=== PATIENT | female | born 1985 | race Caucasian/White ===

== ENCOUNTER 2018-12-21 07:32 | Day surgery (SDC) | payer OTHER ==
[2018-12-18 08:12] VITALS: BMI 30.8
[2018-12-21] MEDS ORDERED: LACTATED RINGERS SOLUTION 1,000 ML IV SCH (09:00)
--- NOTE | 2018-12-21 09:29 | HP ---
History & Physical Update - History History: No Change ( at EGA 15wk w/incompetent cervix, admitted fro cervical cerclage) - Physical Physical: No Change - Assessment Assessment: No Change - Plan Plan: No Change (Cervical cerclage)
[2018-12-21] MEDS ORDERED: PHENYLEPHRINE HCL 10 MG/1 ML SINGLE DOSE VIAL ONE (09:43)
[2018-12-21] MEDS ORDERED: ceFAZolin SODIUM 1 GM VIAL IVPB ONE (09:55)
[2018-12-21] MEDS ORDERED: ceFAZolin SODIUM 1 GM VIAL ONE (10:03)
--- NOTE | 2018-12-21 10:32 | OP ---
Operative Note - Note: Operative Date: 12/21/18 Pre-Operative Diagnosis: at 14wks with incompetent cervix Operation: Talley cervical cerclage Findings: Closed cervix, normal anatomy. Post-Operative Diagnosis: Other (Cerclage suture knot is at 12:00) Surgeon: Franklyn Israel Anesthesiologist/DISC PAD GRINDER: Lis Nickerson Anesthesia: Spinal Estimated Blood Loss (mls): 1 Blood Volume Replaced (mls): 0 Fluid Volume Replaced (mls): 1,000 Operative Report Dictated: Yes
--- NOTE | 2018-12-21 11:31 | OP ---
DATE OF OPERATION: 12/21/2018 PREOPERATIVE DIAGNOSIS: at estimated gestational age of 14 weeks with incompetent cervix. POSTOPERATIVE DIAGNOSIS: at estimated gestational age of 14 weeks with incompetent cervix. PROCEDURE: Talley cervical cerclage. SURGEON: Raquel Chen MD ANESTHESIOLOGIST: Lis Nickerson MD ANESTHESIA: Spinal. COMPLICATIONS: None. ESTIMATED BLOOD LOSS: 1 mL. IV FLUIDS: 1000 mL. FINDINGS: Examination under anesthesia revealed a closed cervix. External cervical os measured approximately 2 cm. Preoperative ultrasound confirmed a live intrauterine in variable presentation with anterior placenta. Postoperative ultrasound revealed a live intrauterine in variable presentation with anterior placement. DESCRIPTION OF PROCEDURE: The patient was met preoperatively. Risks, benefits, and alternatives of surgery were discussed in details. All questions were answered. The patient was then brought to the OR with the IV running. She was placed on the surgical table in a sitting position. The spinal anesthesia was achieved without difficulty. The patient was then placed on the surgical table in a dorsal lithotomy position using adjustment Salvatore stirrups. The patient was examined under anesthesia with the findings as described above. A preoperative ultrasound was performed. The patient was then prepped and draped in the usual sterile fashion. A time-out procedure was conducted as per standard protocol. The surgeon then proceeded with the operation. The cervical os was grasped with atraumatic forceps. A 5-mm Mersilene suture was then placed circumferentially around the cervix in a pursestring fashion. Care was taken to identify the bladder reflection and posterior fornix reflection carefully. The suture was placed successfully and tied at 12 o'clock. Good hemostasis was noted. The cervix appeared long and closed at the end of the procedure. The instruments were removed from the patient. Sponge, lap, and needle counts were correct. A postoperative ultrasound was performed. The patient was then returned to supine position. She was transferred to recovery room awake and in stable condition. RAQUEL CHEN M.D. [id number]
[2018-12-21 13:23] VITALS: BP 99/56; PULSE 69; TEMP 97.9
== END 2018-12-21 15:40 | disposition home or self-care (01) ==
LOC: JASU-SURG 07:32
PROVIDERS: ATTEND Obstetrics & Gynecology
PROC: 0UVC7ZZ Restriction of Cervix, Via Natural or Artificial Opening (ICD-10-PCS; principal; 2018-12-21 09:00)
DX: O34.32 Maternal care for cervical incompetence, second trimester (principal)
CPT/HCPCS: 76815; 76998-TC; 86850; 86900; 86901; 94760

== ENCOUNTER 2019-06-14 08:08 | Inpatient (IN) | payer OTHER ==
[2019-06-14 08:55] VITALS: BMI 36.6
[2019-06-14] MEDS ORDERED: CITRIC ACID/SODIUM CITRATE 30 ML UNIT-DOSE CUP PO ONE (09:15)
[2019-06-14] MEDS ORDERED: ELECTROLYTE-148 SOLN 1,000 ML IV SCH ×3 (09:15→10:15)
--- NOTE | 2019-06-14 10:02 | HP ---
Past Medical History - Primary Care Physician PCP:: Franklyn Israel - Admission Chief Complaint: 34yo P2 with at EGA 39w0d admitted for repeat C/S. History of Present Illness: Prior C/S x 2 Hx cervical incompetence and s/p cervical cerclage removed. 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 Hx of infertility History Source: Patient, Medical Record Limitations to Obtaining History: No Limitations - Past Medical History HOT REPAIRMAN: No: Alzheimer's, CVA, Dementia, Migraine, Multiple Sclerosis, Peripheral Neuropathy, Parkinson's, Seizure, Syncope, TIA, Vertigo, Other Cardiovascular: No: AFIB, Aneurysm, Aortic Insufficiency, Aortic Stenosis, CAD, CHF, Deep Vein Thrombosis, HTN, Hyperlipdemia, IL, Mitral Insufficiency, Mitral Stenosis, Murmur, Pulmonary Hypertension, Other Pulmonary: No: Asthma, Bronchitis, Cancer, COPD, O2 Dependent, Pneumonia, Previously Intubated, Pulmonary Embolus, Pulmonary Fibrosis, Sleep Apnea, Other Gastrointestinal: No: Ascites, Cancer, Constipation, Crohn's Disease, Diverticulitis, Diverticulosis, Esophageal Varices, Gastritis, GERD, GI Bleed, Hemorrhoids, Hiatal Hernia, Inflamatory Bowel Disease, Irritable Bowel Disease, Pancreatitis, Peptic Ulcer Disease, Ulcerative Colitis, Other Hepatobiliary: No: Cirrhosis, Cholelithiasis, Cholecystitis, Choledocholithiasis , Hepatitis A, Hepatitis B, Hepatitis C, Other Renal/: No: Renal Failure, Renal Inusuff, BPH, Cancer, Hematuria, Hemodialysis , Neurogenic Bladder, Renal Calculi, UTI, Other Reproductive: Yes: Polycystic Ovary Syndrome ...: 4 ...Para: 2 ...Term: 1 ...: 1 ...Spon : 1 ...Induced : 0 ...Multiple Gestation: 0 ...LMP: 09/15/18 ... Weeks Gestation by Dates: 39 ...EDC by Dates: 06/22/19 ...EDC by Sono: 06/21/19 Heme/Onc: No: Anemia, B12 Deficiency, Bleeding Disorder, Cancer, Current Chemotherapy, Current Radiation Therapy, Hemochromatosis, Hypercoaguable State, Myeloproliferative Synd, Sickle Cell Disease, Sickle Cell Trait, Thrombocytopenia, Other Infectious Disease: No: AIDS, C-Diff, Herpes Zoster, HIV, MRSA, STD's, Tuberculosis, VREF, Other Psych: No: Addictions, Anxiety, Bipolar, Depression, Panic, Psychosis, Schizophrenia, Other Musculoskeletal: No: Bursitis, Chronic low back pain, Hemiparesis, Hemiplegia, Osteoarthritis, Paraplegia, Other Rheumatology: No: Fibromyalgia, Gout, Lupus, Rheumatoid Arthritis, Sarcoidosis, Vasculitis, Other ENT: No: Allergic Rhinitis, Sinusitis, Other Endocrine: No: Andrei's Disease, Hermelinda's Disease, Diabetes Insipidus, Diabetes Mellitus, Hyperparathyroidism, Hyperthyroidism, Hypothyroidism, Osteopenia, SIADH, Other Dermatology: No: Basal Cell, Cellulitis, Eczema, Melanoma, Psoriasis, Squamous Cell, Other - Past Surgical History Past Surgical History: Yes: Bariatric Surgery, Cholecystectomy, (x 2) , Tonsillectomy Hx Myomectomy: No Hx Transabdominal Cerclage: No Additional Surgical History: Cleft lip and palate repair - Smoking History Smoking history: Never smoked Have you smoked in the past 12 months: No - Alcohol/Substance Use Hx Alcohol Use: No History of Substance Use: reports: None - Social History Usual Living Arrangement: Yes: With Spouse, With Child Do you think of yourself as: Straight/Heterosexual ADL: Independent History of Recent Travel: No Home Medications - Allergies Allergies/Adverse Reactions: Allergies Allergy/AdvReac Type Severity Reaction Status Date / Time No Known Allergies Allergy Verified 06/14/19 08:27 - Home Medications Home Medications: Ambulatory Orders Ferrous Sulfate [Iron] 325 mg PO DAILY 06/04/19 Pnv 29-1 Tablet 1 tab PO DAILY 06/04/19 Family Medical History Family History: Unremarkable Family Hx Diabetes: Father Review of Systems - Review of Systems Constitutional: reports: No Symptoms Eyes: reports: No Symptoms HENT: reports: No Symptoms Neck: reports: No Symptoms Cardiovascular: reports: No Symptoms Respiratory: reports: No Symptoms Gastrointestinal: reports: No Symptoms Genitourinary: reports: No Symptoms Breasts: reports: No Symptoms Reported Musculoskeletal: reports: No Symptoms Integumentary: reports: No Symptoms Neurological: reports: No Symptoms Endocrine: reports: No Symptoms Hematology/Lymphatic: reports: No Symptoms Psychiatric: reports: No Symptoms Pain Intensity: 0 Physical Exam - Maternity Vital Signs: Vital Signs Temperature 98.2 F 06/14/19 08:30 Pulse Rate 77 06/14/19 08:30 Respiratory Rate 18 06/14/19 08:30 Blood Pressure 111/58 L 06/14/19 08:30 O2 Sat by Pulse Oximetry (%) Constitutional: Yes: Well Nourished, No Distress, Calm Eyes: Yes: WNL, Conjunctiva Clear HENT: Yes: WNL, Atraumatic, Normocephalic Neck: Yes: WNL, Supple, Trachea Midline Cardiovascular: Yes: WNL, Regular Rate and Rhythm Lungs: Clear to auscultation, Normal air movement - Abdominal Exam/OB Fundal Height: 40 Number of Fetuses: Single Presentation: Vertex Contractions: Yes Regularity: Irritability Intensity: Unaware Monitor Mode: External Heart Rate (range): 135 Heart Rate Location: Midline Category: I Accelerations: Non-Uniform Decelerations: None - Vaginal Exam/OB Vaginal Bleediing: No Speculum Exam: No Amniotic Membrane Status: Intact Presentation: Vertex/Position - Physical Exam Musculoskeletal: Yes: WNL Extremities: Yes: WNL Edema: Yes Edema: LLE: Trace, RLE: Trace Integumentary: Yes: WNL Deep Tendon Reflex Grade: Normal +2 ...Motor Strength: WNL Psychiatric: Yes: WNL, Alert, Oriented Hemorrhage Risk Assessment - Risk Factors Medium Risk Factors: Yes: Prior , uterine surgery,or multiple laparotomies High Risk Factors: Yes: None Risk Score: 1 Risk Level: Medium Risk Assessment/Plan 34yo P2 with at EGA 39w0d admitted for repeat C/S. We discussed the risks and benefits of C/S at length, including but not limited to scarring, pain , bleeding, infection, injury to underlying organs and structures, need for additional surgery to repair/treat any problems or complications, complications/injuries, etc. The pt verbalized her understanding and requested to proceed with surgery. The pt is aware that all surgeries have risks and no guarantees can be provided.
[2019-06-14] MEDS ORDERED: OXYTOCIN 20 UNITS in 0.9% NS 40 UNIT/2,000 ML INFUS.BAG IV ONE (10:12)
[2019-06-14] MEDS ORDERED: morphine SULFATE/PF 0.5 MG/ML (2cc Syringe - QUVA) ONE (10:25)
[2019-06-14] MEDS ORDERED: ceFAZolin SODIUM 1 GM VIAL ONE (10:32)
[2019-06-14] MEDS ORDERED: ePHEDrine SULFATE 50 MG/1 ML AMPULE ONE (10:34)
[2019-06-14] MEDS ORDERED: PHENYLEPHRINE HCL 10 MG/1 ML SINGLE DOSE VIAL ONE (10:39)
[2019-06-14] MEDS ORDERED: KETOROLAC TROMETHAMINE 30 MG/1 ML VIAL ONE (11:21)
[2019-06-14 11:22] LABS: COCAINE, UR NEGATIVE ng/ml (CUTOFF=300); METHADONE, UR NEGATIVE ng/ml (CUTOFF=300); OPIATES, URI NEGATIVE ng/ml (CUTOFF=300); PHENCYCLIDINE,URINE NEGATIVE ng/ml (CUTOFF=25); URINE AMPHETAMINES NEGATIVE ng/ml (CUTOFF=500); URINE BARBITURATES NEGATIVE ng/ml (CUTOFF=200); URINE BENZODIAZEPINES NEGATIVE ng/ml (CUTOFF=200)
--- NOTE | 2019-06-14 11:28 | PN ---
Progress Note (short form) - Note Progress Note: Attended Rpt C/S for this 34yrs old mother with Maternal PNL- nl, Mom with H/O Cleft lip/ Palate - repaired Infant delivered - clear fluid, cried soon after suctioned/ dried cord 3V 9/9 PE: alert/ active, pink well perfused, Not in distress PE exam nl for age RNBC Watch for resp distress Encourage BF/ Bonding.
[2019-06-14] MEDS ORDERED: METHYLERGONOVINE MALEATE 0.2 MG/1 ML AMP IM PRN (11:57)
[2019-06-14] MEDS ORDERED: IBUPROFEN 800 MG/8 ML IJ IVPB PRN (11:57)
[2019-06-14] MEDS ORDERED: oxyCODONE HCL 5 MG TABLET PO PRN ×2 (11:57)
[2019-06-14] MEDS ORDERED: BENZOCAINE 20% 57 GM BOTTLE TP PRN (11:57)
[2019-06-14] MEDS ORDERED: WITCH HAZEL 50% (TUCKS) 40 PAD/JAR PAD TP PRN (11:57)
[2019-06-14] MEDS ORDERED: SENNOSIDES/DOCUSATE COMBO (SENNA PLUS) TABLET (UD) PO PRN (11:57)
[2019-06-14] MEDS ORDERED: BENZOCAINE 28 GM HEMORRHOIDAL OINTMENT TP PRN (11:57)
[2019-06-14] MEDS ORDERED: OXYTOCIN 20 UNITS in 0.9% NS 20 UNIT/1,000 ML INFUS.BAG IV SCH (12:00)
--- NOTE | 2019-06-14 12:20 | OP ---
Operative Note - Note: Operative Date: 06/14/19 Pre-Operative Diagnosis: at EGA 39wk. Prior C/S. Sterilization Operation: Repeat LT C/S and BTL Findings: Multiple large vascular sinuses and varicosities in lower uterine segment and bladder. Live baby boy in Vtx presentation, no meconium in amniotic fluid, normal uterus/tubes/ovaries. 9-9, Wt 7lb 14oz Post-Operative Diagnosis: Same as Pre-op Surgeon: Franklyn Israel Senior Outside Sales Representative: Faby Ann Anesthesiologist/PREDATORY ANIMAL HUNTER: Alex Bland Anesthesia: Spinal Specimens Removed: Placenta, sigments of bilateral Fallopian tubes. Estimated Blood Loss (mls): 700 Drains & Tubes with Location: Mahoney cath Drains, Volume Out (mls): 100 Blood Volume Replaced (mls): 0 Fluid Volume Replaced (mls): 1,700 Operative Report Dictated: Yes
--- NOTE | 2019-06-14 13:42 | OP ---
DATE OF OPERATION: 06/14/2019 PREOPERATIVE DIAGNOSIS: at estimated gestational age of 39 weeks. Previous section x2. Sterilization with bilateral tubal ligation. POSTOPERATIVE DIAGNOSIS: at estimated gestational age of 39 weeks. Previous section x2. Sterilization with bilateral tubal ligation. PROCEDURE: Repeat low transverse section via Pfannenstiel skin incision, bilateral tubal ligation via modified Marko method. SURGEON: Franklyn Israel M.D. WINE CELLAR WORKER: Faby Ann M.D. ANESTHESIA: Spinal. ANESTHESIOLOGIST: Alex Bland M.D. PATHOLOGY: Placenta and segments of bilateral fallopian tubes. COMPLICATIONS: None. ESTIMATED BLOOD LOSS: 700 mL URINE OUTPUT: 100 mL clear urine at the end of the procedure. INTRAVENOUS FLUIDS: 1700 mL. FINDINGS: Multiple large vascular sinuses and varicosities were noted in the lower uterine segment and around bladder. Live baby boy in vertex presentation. No meconium in amniotic fluids. Normal uterus, fallopian tubes and ovaries. Baby's Apgars are 9 and 9. Baby's weight is 7 pounds 14 ounces. PROCEDURE: The patient was met preoperatively. Risks, benefits, and alternatives of surgery were discussed in detail. All questions were answered. The patient was brought to the OR with the IV running. She was placed on the surgical table in a sitting position. The spinal anesthesia was achieved without difficulty. The patient was placed in the supine position with leftward tilt. A Mahoney catheter was inserted and left to drain to gravity. The patient was prepped and draped in the usual sterile fashion. A timeout was conducted as per standard protocol. The surgeons then proceeded with the operation. A Pfannenstiel skin incision was made with the knife along the previous scar. The incision was taken down to the level of fascia. The fascia was incised in the midline. The incision was extended bilaterally using Bullard scissors. The fascia was dissected superiorly and inferiorly from the rectus muscles using sharp dissection. The rectus muscles were in the midline. The peritoneum was identified and entered sharply. The omentum was noted to be densely adherent to the anterior abdominal wall and peritoneum. The omentum was dissected away from the anterior abdominal wall using sharp and blunt dissection as well as suture ligatures. Good hemostasis was noted. The lower uterine segment and bladder were noted to have multiple large varicosities and vascular sinuses traversing the entire anterior low portion of the uterus. A careful dissection of the vascular sinuses and varicose veins was performed, each varicosity sinus was suture ligated and transected with good hemostasis. The bladder was then dissected away from the lower uterine segment using sharp dissection. The bladder was reflected downwards. The uterus was incised transversely in the lower uterine segment. The uterine incision was extended bilaterally using bandage scissors. The baby was delivered from vertex presentation without complications. The umbilical cord was clamped and cut. The baby was handed to the waiting loose hand packer. The baby was crying spontaneously. The placenta was removed manually and without complications. The uterus was cleared of all clots and debris using laparotomy laps. The uterine incision was repaired using 0 Biosyn suture in a running, locking stitch. Good hemostasis was noted. Several additional [id number] ligatures were used to ligate some of the sinuses and of varicose veins around the lower uterine segment to achieve hemostasis. The uterine incision was then imbricated using a secondary layer of closure with the 0 Biosyn suture. Once again, good hemostasis was confirmed. The right fallopian tube was then identified and grasped with the Lisa clamp. The fallopian tube was followed to the fimbriated end. The mid portion of the fallopian tube was suture ligated and excised with good hemostasis. The left fallopian tube was then identified and followed to the fimbriated end. The mid portion of the left fallopian tube was then suture ligated and excised. The excised segments were sent to pathology for evaluation. Good hemostasis was confirmed bilaterally. The parietal peritoneum and rectus muscles were then approximated in the midline using several interrupted 2-0 chromic sutures. The fascia was closed using a 0 Vicryl suture with a running stitch. The subcutaneous adipose tissues and Bebe's fascia were closed using several interrupted 0 Vicryl sutures to eliminate space and to improve approximation. The skin was closed using a 4-0 Biosyn suture in a subcutaneous stitch. Sponge, lap, and instrument counts were correct. Patient was then transferred to recovery room in stable condition and awake. Quin [id number]
[2019-06-14] MEDS ORDERED: OXYTOCIN 20 UNITS in 0.9% NS 20 UNIT/1,000 ML INFUS.BAG IV ONE (13:54)
[2019-06-14] MEDS ORDERED: ONDANSETRON 4 MG/2 ML VIAL IVPUSH PRN (14:25)
[2019-06-14] MEDS ORDERED: ONDANSETRON 4 MG/2 ML VIAL ONE (14:34)
[2019-06-14] MEDS: CEFAZOLIN 2 GM/D5W 2 GM/50 ML ML IVPB SCH (17:30)
[2019-06-14] MEDS ORDERED: ceFAZolin 2 GRAM PREMIX BAG IVPB SCH (18:00)
[2019-06-15] MEDS: CEFAZOLIN 2 GM/D5W 2 GM/50 ML ML IVPB SCH (01:31)
[2019-06-15] MEDS: SIMETHICONE 80 MG TAB.CHEW (FP) PO PRN ×3 (05:52→18:09)
[2019-06-15] MEDS: ACETAMINOPHEN 325 MG TABLET (FP) PO PRN ×3 (05:52→18:10)
[2019-06-15] MEDS: IBUPROFEN 600 MG TABLET (FP) PO PRN ×3 (05:53→18:10)
[2019-06-15 07:18] LABS: BASO % 0.1 % (0-2.0); EOS % 0.2 % (0-4.5); HEMATOCRIT 22.7 % (32.4-45.2); HEMOGLOBIN 7.5 GM/dL (10.7-15.3); LYMPH % 13.2 % (8-40); MCHC 33.1 g/dl (32.0-36.0); MEAN CELL VOLUME 78.6 fl (80-96); MEAN PLT VOLUME 9.1 fl (7.5-11.1); MONO % 9.4 % (3.8-10.2); NEUT % 77.1 % (42.8-82.8); PLATELET COUNT 310 K/MM3 (134-434); RBC 2.89 M/mm3 (3.60-5.2); RDW 16.4 % (11.6-15.6); WHITE BLOOD COUNT 11.8 K/mm3 (4.0-10.0)
[2019-06-15] MEDS: FERROUS SO4 325 MG TABLET (FP) PO SCH ×2 (09:11→18:10)
[2019-06-15] MEDS: ENOXAPARIN NA (PORCINE) 40 MG/0.4 ML DISP.SYRIN SQ SCH (09:12)
[2019-06-15] MEDS: PRENATAL VITAMINS W/ FOLIC ACID TABLET (FP) PO SCH (09:12)
--- NOTE | 2019-06-15 09:21 | PN ---
Post Progress Note - Subjective Subjective: Patient without acute complaints. Reports tolerating oral intake without nausea or vomiting. Ambulating without dizziness. Denies fevers or chills. Pain well controlled with oral pain medication. without difficulty. negative flatus Post Day: 1 Type of Delivery: Repeat C/S Vital Signs: Vital Signs Temperature 98.3 F 06/15/19 06:00 Pulse Rate 72 06/15/19 06:00 Respiratory Rate 18 06/15/19 06:00 Blood Pressure 106/57 L 06/15/19 06:00 O2 Sat by Pulse Oximetry (%) 100 06/14/19 13:45 Breast Exam: Yes: Soft Uterus: Yes: Fundus Firm Incision: Yes: Dressing dry and intact Abdomen/GI: Yes: Abdomen soft Lochia: Yes: Rubra Lochia, amount: Small Extremities: Yes: Calves non-tender Perineum: Yes: Intact Activity: Other (in bed) - Labs Labs: CBC WBC 11.8 K/mm3 (4.0-10.0) H 06/15/19 06:56 RBC 2.89 M/mm3 (3.60-5.2) L 06/15/19 06:56 Hgb 7.5 GM/dL (10.7-15.3) L 06/15/19 06:56 Hct 22.7 % (32.4-45.2) L D 06/15/19 06:56 MCV 78.6 fl (80-96) L 06/15/19 06:56 MCH 26.0 pg (25.7-33.7) 06/15/19 06:56 MCHC 33.1 g/dl (32.0-36.0) 06/15/19 06:56 RDW 16.4 % (11.6-15.6) H 06/15/19 06:56 Plt Count 310 K/MM3 (134-434) D 06/15/19 06:56 MPV 9.1 fl (7.5-11.1) 06/15/19 06:56 Absolute Neuts (auto) 9.1 K/mm3 (1.5-8.0) H 06/15/19 06:56 Neutrophils % 77.1 % (42.8-82.8) 06/15/19 06:56 Lymphocytes % 13.2 % (8-40) D 06/15/19 06:56 Monocytes % 9.4 % (3.8-10.2) 06/15/19 06:56 Eosinophils % 0.2 % (0-4.5) 06/15/19 06:56 Basophils % 0.1 % (0-2.0) 06/15/19 06:56 Nucleated RBC % 0 % (0-0) 06/15/19 06:56 Assessment/Plan 34yo P3 s/p Repeat c/section POD #1 VSS, Afebrile Doing well H/H appropriate decrease will repeat CBC in am Rh pos, no need for RhoGam Baby boy for circumcision, consented Encouraged ambulation
--- NOTE | 2019-06-15 11:42 | PN ---
Progress Note (short form) - Note Progress Note: POD #1 s/p C/S. Doing well, having some discomfort. Encouraged patient to take po narcotics.
[2019-06-15] MEDS ORDERED: BISACODYL 10 MG SUPP.RECT RC PRN (11:57)
[2019-06-16] MEDS: ACETAMINOPHEN 325 MG TABLET (FP) PO PRN ×4 (01:54→23:05)
[2019-06-16] MEDS: IBUPROFEN 600 MG TABLET (FP) PO PRN ×4 (01:54→23:06)
[2019-06-16] MEDS: SIMETHICONE 80 MG TAB.CHEW (FP) PO PRN ×4 (01:54→23:05)
--- NOTE | 2019-06-16 06:54 | PN ---
Post Progress Note - Subjective Subjective: No complaints. No SOB, chest pain, dizziness. Post Day: 2 Type of Delivery: Repeat C/S Vital Signs: Vital Signs Temperature 97.7 F 06/15/19 21:20 Pulse Rate 80 06/15/19 21:20 Respiratory Rate 20 06/15/19 21:20 Blood Pressure 102/52 L 06/15/19 21:20 O2 Sat by Pulse Oximetry (%) 100 06/14/19 13:45 Breast Exam: Yes: Soft Uterus: Yes: Fundus Firm, Fundus below umbilicus, Non-tender Incision: Yes: Dressing dry and intact Abdomen/GI: Yes: Abdomen soft, Tolerating PO Lochia: Yes: Rubra Lochia, amount: Small Extremities: Yes: Calves non-tender Perineum: Yes: Intact Activity: Ambulating - Labs Labs: CBC WBC 11.8 K/mm3 (4.0-10.0) H 06/15/19 06:56 RBC 2.89 M/mm3 (3.60-5.2) L 06/15/19 06:56 Hgb 7.5 GM/dL (10.7-15.3) L 06/15/19 06:56 Hct 22.7 % (32.4-45.2) L D 06/15/19 06:56 MCV 78.6 fl (80-96) L 06/15/19 06:56 MCH 26.0 pg (25.7-33.7) 06/15/19 06:56 MCHC 33.1 g/dl (32.0-36.0) 06/15/19 06:56 RDW 16.4 % (11.6-15.6) H 06/15/19 06:56 Plt Count 310 K/MM3 (134-434) D 06/15/19 06:56 MPV 9.1 fl (7.5-11.1) 06/15/19 06:56 Absolute Neuts (auto) 9.1 K/mm3 (1.5-8.0) H 06/15/19 06:56 Neutrophils % 77.1 % (42.8-82.8) 06/15/19 06:56 Lymphocytes % 13.2 % (8-40) D 06/15/19 06:56 Monocytes % 9.4 % (3.8-10.2) 06/15/19 06:56 Eosinophils % 0.2 % (0-4.5) 06/15/19 06:56 Basophils % 0.1 % (0-2.0) 06/15/19 06:56 Nucleated RBC % 0 % (0-0) 06/15/19 06:56 Assessment/Plan 34yo P3 s/p repeat LT C/S and BTL. Pt is doing well. Asymptomatic for anemia. F/u CBC. Continue routine postop and care.
[2019-06-16 07:45] LABS: BASO % 0.4 % (0-2.0); EOS % 1.5 % (0-4.5); HEMATOCRIT 22.1 % (32.4-45.2); HEMOGLOBIN 7.2 GM/dL (10.7-15.3); LYMPH % 20.9 % (8-40); MCH 25.8 pg (25.7-33.7); MCHC 32.6 g/dl (32.0-36.0); MEAN CELL VOLUME 79.2 fl (80-96); MEAN PLT VOLUME 9.1 fl (7.5-11.1); NEUT % 67.2 % (42.8-82.8); PLATELET COUNT 311 K/MM3 (134-434); RBC 2.79 M/mm3 (3.60-5.2); RDW 16.2 % (11.6-15.6)
[2019-06-16] MEDS: FERROUS SO4 325 MG TABLET (FP) PO SCH ×2 (09:00→16:32)
[2019-06-16] MEDS: PRENATAL VITAMINS W/ FOLIC ACID TABLET (FP) PO SCH (09:09)
[2019-06-16] MEDS: ENOXAPARIN NA (PORCINE) 40 MG/0.4 ML DISP.SYRIN SQ SCH (09:09)
--- NOTE | 2019-06-16 15:30 | DS ---
Physical Exam-MOLD PRESSER Vital Signs: Vital Signs Temperature 97.6 F 06/16/19 10:00 Pulse Rate 89 06/16/19 10:00 Respiratory Rate 18 06/16/19 10:00 Blood Pressure 104/52 L 06/16/19 10:00 O2 Sat by Pulse Oximetry (%) 100 06/14/19 13:45 Constitutional: Yes: Well Nourished, No Distress, Calm Eyes: Yes: WNL, Conjunctiva Clear HENT: Yes: WNL, Atraumatic, Normocephalic Neck: Yes: WNL, Supple, Trachea Midline Cardiovascular: Yes: WNL, Regular Rate and Rhythm Respiratory: Yes: WNL, Regular, CTA Bilaterally Gastrointestinal: Yes: WNL, Normal Bowel Sounds, Soft ...Rectal Exam: Yes: Deferred Renal/: Yes: WNL Internal Exam Deferred: Yes Breast(s): Yes: WNL Musculoskeletal: Yes: WNL Extremities: Yes: WNL Edema: Yes Edema: LLE: Trace, RLE: Trace Integumentary: Yes: WNL Wound/Incision: Yes: Clean/Dry, Well Approximated Neurological: Yes: WNL, Alert, Oriented ...Motor Strength: WNL Psychiatric: Yes: WNL, Alert, Oriented Labs: CBC, BMP 06/16/19 07:12 Delivery - Delivery Section: Low Flap Transverse (and BTL) Type of Anesthesia: Spinal Episiotomy/Laceration: None EBL (cc): 700 Delivery, Single - Stages of Labor Date of Delivery: 06/14/19 Time of Delivery: 11:08 Time Placenta Delivered: 11:09 Placenta: Yes: Manual Removal - Condition of Process Trainer/Buckle And Button Maker Present: Yes Name: Nelson Hall Infant Gender: Male Weight: 3.572 kg Position: Left, OT Total Hours ROM (Hrs/Mins): 0/2 - 1 Minute Total Score: 9 5 Minutes Total Score: 9 - [place] Feeding Plan Initial Plan: Elected not to breastfeed exclusively throughout hospitalization Discharge Summary Problems reviewed: Yes Reason For Visit: REPEAT Previous C/S and sterilization. Procedures: Principal: Repeat LT C/S Other Procedures: BTL Hospital Course: Normal postop recovery Plan of Treatment: Postop and care. Condition: Good - Instructions Diet, Activity, Other Instructions: Physical activity Resume your normal everyday activity as tolerated no heavy lifting or exercise until seen by your surgeon. You may walk unlimited anali of and climb stairs. You may resume driving the car when you feel safe and comfortable behind the wheel. No sexual activity as instructed. Wound care If you have a bandage, leave it on, and keep dry for 48-72 hours. After that time discard the outer bandage. If they are tapes on the skin under the out of bandage leave them in place. They will peel off in the next 7 to 10 days. Do Not Peel them off. You may shower the day after surgery. If there are tapes present on the skin, you may shower over them. Diet There are no dietary restrictions. Eat healthy, high-fiber foods. Drink 6 to 8 glasses of liquid each day. This will assist in keeping your bowels are regular. Pain management You may take Tylenol or acetaminophen or Ibuprofen (for example, Motrin, Advil etc.) from my pain prescription medication is ordered should be taken as prescribed for moderate to severe pain. Call MD for any of the following: Severe pain not relieved by medication Fever of 101 or higher Excessive bleeding or drainage on dressing Inability to urinate Referrals: Franklyn Israel MD [Staff Physician] - Disposition: HOME - Home Medications Comprehensive Discharge Medication List: Ambulatory Orders Ferrous Sulfate [Iron] 325 mg PO DAILY 06/04/19 Pnv 29-1 Tablet 1 tab PO DAILY 06/04/19 Prescription Drug Monitoring Program (I-STOP) results: I-STOP not reviewed
--- NOTE | 2019-06-16 17:06 | PATH ---
Surgical Pathology Report Patient Name: ABIMAEL LÓPEZ Med. Rec. #: [id number] /Age/Gender: 1985 (Age: 34) / F Account: [id number] Location: [facility] OBS/[employer] Taken: 06/14/2019 Received: 06/15/2019 Reported: 06/16/2019 Physicians: Franklyn Israel M.D. Specimen(s) Received A: PLACENTA B: PORTION RIGHT FALLOPIAN TUBE C: PORTION LEFT FALLOPIAN TUBE Clinical History 39 weeks Final Diagnosis A. PLACENTA, SECTION: 556 G THIRD TRIMESTER PLACENTA WITH TRIVASCULAR UMBILICAL CORD AND UNREMARKABLE PLACENTAL MEMBRANES. B. FALLOPIAN TUBE, RIGHT, PARTIAL EXCISION: FULL LUMINAL PORTION OF UNREMARKABLE FALLOPIAN TUBE. C. FALLOPIAN TUBE, LEFT, PARTIAL EXCISION: FULL LUMINAL PORTION OF UNREMARKABLE FALLOPIAN TUBE. Electronically Signed Cassandra Vaughn M.D. Gross Description A. The specimen is received fresh labeled placenta and is a 556 gram, 18 x 18 x 1.5 cm. placenta with attached membranes and umbilical cord. The attached membranes are clear, cotto, opaque and insert marginally. The umbilical cord measures 40 cm. in length and averages 1.3 cm. in diameter. The cord inserts eccentrically, 5 cm. to the nearest margin. No true knots or strictures are identified. Cut surface of the umbilical cord reveals 3 vessels. The surface is powers-blue with minimal fibrin deposition and appropriate caliber vessels. The maternal surface is red-brown with focal defects. Sectioning reveals red-brown, spongy parenchyma. No lesions are identified. [employer] sections are submitted in three cassettes as follows: 1- membrane rolls and umbilical cord; 2-3- full thickness sections of placenta. B. Received fresh labeled "portion of right fallopian tube" is a pink-cotto portion of fallopian tube measuring 2 cm in length. The pinpoint lumen is identified. The entire specimen is submitted in one cassette. C. Received fresh labeled "portion of left fallopian tube" is a pink-cotto portion of fallopian tube measuring 1.8 cm in length. The pinpoint lumen is identified. The entire specimen is submitted in one cassette. MLSZ/06/15/2019 sanml/06/15/2019
--- NOTE | 2019-06-17 00:38 | PN ---
Post Progress Note - Subjective Subjective: Patient without acute complaints. Reports tolerating oral intake without nausea or vomiting. Ambulating without dizziness. Denies fevers or chills. Pain well controlled with oral pain medication. without difficulty. Passing flatus. Post Day: 3 Type of Delivery: Repeat C/S Vital Signs: Vital Signs Temperature 97.8 F 06/16/19 21:07 Pulse Rate 70 06/16/19 21:07 Respiratory Rate 20 06/16/19 21:07 Blood Pressure 102/59 L 06/16/19 21:07 O2 Sat by Pulse Oximetry (%) 100 06/14/19 13:45 Breast Exam: Yes: Soft Uterus: Yes: Fundus Firm, Fundus below umbilicus Incision: Yes: Sutures intact. No: Redness, Oozing Abdomen/GI: Yes: Abdomen soft, Tender (mild incisional), Passing flatus, Tolerating PO. No: Abdominal Distention Lochia: Yes: Rubra Lochia, amount: Moderate Extremities: Yes: Calves non-tender, Edema (trace) Activity: Ambulating - Labs Labs: CBC WBC 12.0 K/mm3 (4.0-10.0) H 06/16/19 07:12 RBC 2.79 M/mm3 (3.60-5.2) L 06/16/19 07:12 Hgb 7.2 GM/dL (10.7-15.3) L 06/16/19 07:12 Hct 22.1 % (32.4-45.2) L 06/16/19 07:12 MCV 79.2 fl (80-96) L 06/16/19 07:12 MCH 25.8 pg (25.7-33.7) 06/16/19 07:12 MCHC 32.6 g/dl (32.0-36.0) 06/16/19 07:12 RDW 16.2 % (11.6-15.6) H 06/16/19 07:12 Plt Count 311 K/MM3 (134-434) 06/16/19 07:12 MPV 9.1 fl (7.5-11.1) 06/16/19 07:12 Absolute Neuts (auto) 8.0 K/mm3 (1.5-8.0) 06/16/19 07:12 Neutrophils % 67.2 % (42.8-82.8) 06/16/19 07:12 Lymphocytes % 20.9 % (8-40) D 06/16/19 07:12 Monocytes % 10.0 % (3.8-10.2) 06/16/19 07:12 Eosinophils % 1.5 % (0-4.5) D 06/16/19 07:12 Basophils % 0.4 % (0-2.0) D 06/16/19 07:12 Nucleated RBC % 0 % (0-0) 06/16/19 07:12 Assessment/Plan 34 yo POD # 3 s/p repeat CD, afebrile, vital signs stable, asymptomatic anemia, doing well 1. Patient stable for discharge home today. 2. Patient encouraged to contact MD for: - Severe pain not controlled by oral pain medication - Fevers or chills - Nausea or vomiting, intolerance of oral intake 3. Patient to follow up in office in 4-6 weeks for visit
[2019-06-17] MEDS: FERROUS SO4 325 MG TABLET (FP) PO SCH (08:18)
[2019-06-17] MEDS: ACETAMINOPHEN 325 MG TABLET (FP) PO PRN (08:18)
[2019-06-17] MEDS: SIMETHICONE 80 MG TAB.CHEW (FP) PO PRN (08:18)
[2019-06-17] MEDS: IBUPROFEN 600 MG TABLET (FP) PO PRN (08:18)
[2019-06-17 08:29] LABS: BASO % 0.4 % (0-2.0); EOS % 3.4 % (0-4.5); HEMATOCRIT 23.5 % (32.4-45.2); HEMOGLOBIN 7.7 GM/dL (10.7-15.3); LYMPH % 34.8 % (8-40); MCH 25.9 pg (25.7-33.7); MCHC 32.8 g/dl (32.0-36.0); NEUT % 53.4 % (42.8-82.8); PLATELET COUNT 382 K/MM3 (134-434); RBC 2.97 M/mm3 (3.60-5.2); RDW 16.3 % (11.6-15.6); WHITE BLOOD COUNT 10.3 K/mm3 (4.0-10.0)
[2019-06-17] MEDS: ENOXAPARIN NA (PORCINE) 40 MG/0.4 ML DISP.SYRIN SQ SCH (09:01)
[2019-06-17] MEDS: PRENATAL VITAMINS W/ FOLIC ACID TABLET (FP) PO SCH (09:01)
[2019-06-17 09:39] VITALS: BP 110/56; PULSE 81; TEMP 97.9
== END 2019-06-17 12:35 | disposition home or self-care (01) | DRG 785 ==
LOC: JLDR 08:08 → J3W 14:20
PROVIDERS: ADMIT Obstetrics & Gynecology; ATTEND Obstetrics & Gynecology
PROC: 10D00Z1 Extraction of Products of Conception, Low, Open Approach (ICD-10-PCS; principal; 2019-06-14)
PROC: 0UB70ZZ Excision of Bilateral Fallopian Tubes, Open Approach (ICD-10-PCS; 2019-06-14)
DX: O34.219 Maternal care for unspecified type scar from previous cesarean delivery (principal); Z3A.39 39 weeks gestation of pregnancy; Z37.0 Single live birth; Z30.2 Encounter for sterilization
CPT/HCPCS: 36415; 80307; 85025; 88302-TC; 88307-TC